=== PATIENT | male | born 1955 | race Two or more races ===

== ENCOUNTER 2022-11-11 11:30 | Emergency (ER) | payer OTHER ==
[~2022-11-11] VITALS: Ht 165.1 cm; Wt 54.9 kg
[2022-11-11 12:11] LABS: Basophils # (auto) 0.1 10 ^3/uL (0-0.2); Eosinophils # (auto) 0.6 10 ^3/uL (0-0.8)
[2022-11-11 12:13] LABS: Basophils % (auto) 0.4 % (0.0-2.0); Eosinophils % (auto) 4.7 % (0.0-7.0); Hematocrit 44.5 % (41.0-53.0); Hemoglobin 15.3 g/dL (13.5-17.5); Lymphocytes # (auto) 1.8 10 ^3/uL (0.4-5.4); Lymphocytes % (auto) 15.1 % (10.0-50.0); Mean Corpuscular Hemoglobin 30.7 pg (28.0-32.0); Mean Corpuscular Hgb Conc. 34.3 g/dL (32.0-36.0); Mean Corpuscular Volume 89.5 fL (80.0-100.0); Monocytes % (auto) 8.5 % (0.0-12.0); Neutrophils # (auto) 8.4 10 ^3/uL (1.6-8.6); Neutrophils % (auto) 71.3 % (37.0-80.0); Nucleated Red Blood Cells % 0.1 %; Red Blood Cells 4.98 10^6/uL (4.5-5.90); Red Cell Distribution Width 13.7 % (11.8-14.3); White Blood Cell 11.8 10^3/uL (4.4-10.8)
[2022-11-11 12:29] LABS: Alanine Aminotransferase 37 U/L (7-40); Albumin 3.7 g/dL (3.2-4.8); Alkaline Phosphatase 83 U/L (46-116); Anion Gap 8 (5-15); Aspartate Aminotransferase 26 U/L (13-40); BUN/Creatinine Ratio 9.9 (10.0-20.0); Blood Urea Nitrogen 12 mg/dL (9-23); Carbon Dioxide 30 mmol/L (20-30); Chloride 99 mmol/L (98-107); Glucose 115 mg/dL (74-106); Magnesium 2.3 mg/dL (1.6-2.6); Potassium 4.3 mmol/L (3.5-5.1); Sodium 137 mmol/L (136-145)
[2022-11-11 12:30] LABS: Bilirubin, Total 0.2 mg/dL (0.2-1.0); Total Protein 6.4 g/dL (5.7-8.2)
[2022-11-11] MEDS ORDERED: SODIUM CHLORIDE 0.9% 1,000 ML IV ONE ×2 (12:30)
[2022-11-11] MEDS ORDERED: PANTOPRAZOLE 40 MG/10 ML VIAL INJ IV ONE (12:30)
[2022-11-11 12:35] LABS: INR 1.01 (0.9-1.15); Partial Thromboplastin Time 21.4 SEC (24.5-34.5); Prothrombin Time 10.6 sec (9.3-11.8)
[2022-11-11] MEDS ORDERED: metroNIDAZOLE 500MG/100ML 100 ML IV ONE (12:45)
[2022-11-11] MEDS ORDERED: cefTRIAXone 1GM/50ML D5W 50 ML IV ONE (12:45)
[2022-11-11 13:52] LABS: Lactic Acid w/Reflex 2.1 mmol/L (0.4-2.0)
[2022-11-11] MEDS ORDERED: LEVO500T91 PO (14:00)
[2022-11-11] MEDS ORDERED: METR375C PO (14:00)
[2022-11-11 15:30] VITALS: TEMP 98.9
[2022-11-11 16:11] VITALS: PULSE 107; RESP 14; O2SAT 95
[2022-11-11 17:30] VITALS: BP 105/59; PULSE 107; RESP 18; O2SAT 95
== END 2022-11-11 18:18 | disposition home or self-care (01) ==
LOC: ER 11:30
DX: K52.9 Noninfective gastroenteritis and colitis, unspecified (principal); Z79.899 Other long term (current) drug therapy
CPT/HCPCS: 36415; 74176; 80053; 83605; 83735; 84484; 85025; 85610; 85730; 87040; 93005; 96365; 96367; 96375; 99285; C9113; J0696; J3490; J7030

== ENCOUNTER 2024-08-31 15:18 | Inpatient (IN) | payer OTHER ==
[~2024-08-31] VITALS: Ht 165.1 cm; Wt 53.0 kg
[2024-08-31 01:40] VITALS: BP 118/80; PULSE 116; RESP 19; TEMP 96.3; O2SAT 97
[~2024-08-31 15:18] MED LIST: LEVO500T91 PO; METR375C PO
--- NOTE | 2024-08-31 15:50 | ED.PDOC ---
GI ASSESSMENT HPI Comments 69 y.o male with PMHx of colitis, presents to the ED for a chief complaint of abdominal pain associated with diarrhea that started 2 weeks ago. Patient describes pain as an ache, is constant, non radiating, rating a 6/10 on the pain scale and is associated with mild bright red blood within the diarrhea episodes. Patient denies any nausea, vomiting, fever, chills, back pain, hematuria, or dysuria. Time Seen by MD: 15:45 Primary Care Provider: "I'M NOT SURE" Reviewed Notes: Nurses Notes, Medications, Allergies Allergies: Coded Allergies: NO KNOWN ALLERGIES (Unverified , 11/11/22) Home Meds Active Scripts Metronidazole (Flagyl) 375 Mg Cap, 500 MG PO BS for 10 Days, #30 CAP Prov:JESS EDGAR MD 11/11/22 Levofloxacin Hemihydrate (LEVOFLOXACIN) 500 Mg Tab, 500 MG PO DAILY for 10 Days, #10 MG Prov:JESS EDGAR MD 11/11/22 Information Source: Patient Mode of Arrival: Ambulatory Timing: Weeks (2) Duration: Since onset Quality: Aching Vomitus: None Stool: Blood Streaked, Loose Severity: Moderate Recent: None Recent Hx of: None Pain Location: Diffuse Modifying Factors: Nothing Associated sign and symptoms: Diarrhea, Abdominal Pain Past Medical History Past Medical History (Other): colitis Surgical History: Hernia Repair Family History Family History: Unknown Social History Smoker: Non-Smoker Alcohol: Occasionally Drugs: Denies Drug Use Lives In: Home Constitutional: denies: chills, diaphoresis, fatigue, fever, malaise, sweats, weakness, others EENTM: denies: blurred vision, double vision, ear bleeding, ear discharge, ear drainage, ear pain, ear ringing, eye pain, eye redness, hearing loss, mouth pain, mouth swelling, nasal discharge, nose bleeding, nose congestion, nose pain, photophobia, tearing, throat pain, throat swelling, voice changes, others Respiratory: denies: cough, hemoptysis, orthopnea, SOB at rest, shortness of breath, SOB with excertion, stridor, wheezing, others Cardiovascular: denies: chest pain, dizzy spells, diaphoresis, Dyspnea on exertion, edema, irregular heart beat, left arm pain, lightheadedness, palpitations, PND, syncope, others Gastrointestinal: reports: abdominal pain, diarrhea; denies: abdomen distended, blood streaked bowels, constipated, dysphagia, difficulty swallowing, hematemesis, melena, nausea, poor appetite, poor fluid intake, rectal bleeding, rectal pain, vomiting, others Genitourinary: denies: burning, dysuria, flank pain, frequency, hematuria, incontinence, penile discharge, penile sore, pain, testicle pain, testicle swelling, urgency, others Neurological: denies: dizziness, fainting, headache, left sided numbness, left sided weakness, numbness, paresthesia, pre-existing deficit, right sided numbness, right sided weakness, seizure, speech problems, tingling, tremors, weakness, others Musculoskeletal: denies: back pain, gout, joint pain, joint swelling, muscle pain, muscle stiffness, neck pain, others Integumetry: denies: bruises, change in color, change in hair/nails, dryness, laceration, lesions, lumps, rash, wounds, others Allergic/Immunocompromised: denies: Difficulty Healing, Frequent Infections, Hives, Itching, others Hematologic/Lymphatic: denies: anemia, blood clots, easy bleeding, easy bruising, swollen glands, others Endocrine: denies: excessive hunger, excessive sweating, excessive thirst, excessive urination, flushing, intolerance to cold, intolerance to heat, unexplained weight gain, unexplained weight loss, others Psychiatric: denies: anxiety, bipolar disorder, depression, hopeless, panic disorder, schizophrenia, sleepless, suicidal, others All Other Systems: Reviewed and Negative Physical Exam General Appearance: Moderate Distress, Thin HEENT: Normal ENT Inspection, Pharynx Normal, TMs Normal Neck: Full Range of Motion, Non-Tender, Normal, Normal Inspection Respiratory: Chest Non-Tender, Lungs Clear, No Accessory Muscle Use, No Respiratory Distress, Normal Breath Sounds Cardiovascular: No Edema, No JVD, No Murmur, No Gallop, Normal Peripheral Pulses, Regular Rate/Rhythm Breast Exam: Deferred Gastrointestinal: Diffuse, No Organomegaly, No Pulsatile Mass, Normal Bowel Sounds, Soft, Tenderness Genitalia: Deferred Pelvic: Deferred Rectal: Deferred Extremities: No calf tenderness, Normal capillary refill, Normal range of motion, No pedal edema Musculoskeletal : Apperance: Normal Neurologic: Alert, outside solar sales consultant II-XII nml as Tested, Motor Weakness, Normal Affect, Normal Mood, No Sensory Deficits Cerebellar Function: Normal Reflexes: Normal Skin: Dry, Normal Color, Warm Lymphatic: No Adenopathy Was a procedure done? Was a procedure done?: No GI differential Dx Differential Diagnosis: Gastroenteritis, Inflammatory BD, Pancreatitis, Electrolyte Imbalance, Bacterial, Parasitic, Viral, Anemia, Esophageal Varicies, Stress Ulcer X-Ray, Labs, Meds, VS Vital Signs Date Time Temp Pulse Resp B/P (MAP) Pulse Ox O2 Delivery O2 Flow Rate FiO2 08/31/24 16:00 Room Air* 0 21 08/31/24 16:00 98.9 139 18 117/76 (90) 99 98.9 08/31/24 15:35 98.9 139 18 117/76 (90) 99 98.9 Lab Test 08/31/24 16:05 Range/Units White Blood Count 14.2 H 4.4-10.8 10^3/uL Red Blood Count 4.50 4.5-5.90 10^6/uL Hemoglobin 12.4 L 13.5-17.5 g/dL Hematocrit 37.6 L 41.0-53.0 % Mean Corpuscular Volume 83.5 80.0-100.0 fL Mean Corpuscular Hemoglobin 27.5 L 28.0-32.0 pg Mean Corpuscular Hemoglobin Concent 32.9 32.0-36.0 g/dL Red Cell Distribution Width 16.5 H 11.8-14.3 % Platelet Count 728 H 140-450 10^3/uL Mean Platelet Volume 7.0 6.9-10.8 fL Neutrophils (%) (Auto) 79.4 37.0-80.0 % Lymphocytes (%) (Auto) 12.1 10.0-50.0 % Monocytes (%) (Auto) 7.1 0.0-12.0 % Eosinophils (%) (Auto) 0.9 0.0-7.0 % Basophils (%) (Auto) 0.5 0.0-2.0 % Neutrophils # (Auto) 11.3 H 1.6-8.6 10 ^3/uL Lymphocytes # (Auto) 1.7 0.4-5.4 10 ^3/uL Monocytes # (Auto) 1.0 0-1.3 10 ^3/uL Eosinophils # (Auto) 0.1 0-0.8 10 ^3/uL Basophils # (Auto) 0.1 0-0.2 10 ^3/uL Nucleated Red Blood Cells 0.2 % Sodium Level 133 L 136-145 mmol/L Potassium Level 4.5 3.5-5.1 mmol/L Chloride Level 97 L 98-107 mmol/L Carbon Dioxide Level 24 20-31 mmol/L Anion Gap 12 5-15 Blood Urea Nitrogen 17 9-23 mg/dL Creatinine 1.59 H 0.700-1.30 mg/dL Glomerular Filtration Rate Calc 47 >90 mL/min BUN/Creatinine Ratio 10.7 10.0-20.0 Serum Glucose 114 H 74-106 mg/dL Calcium Level 10.1 8.7-10.4 mg/dL Total Bilirubin 0.3 0.2-1.0 mg/dL Aspartate Amino Transferase (AST) 17 13-40 U/L Alanine Aminotransferase (ALT) 12 7-40 U/L Alkaline Phosphatase 94 46-116 U/L Total Protein 7.4 5.7-8.2 g/dL Albumin 4.1 3.2-4.8 g/dL Current Medications Medications (Trade) Dose Ordered Sig/Janie Route Start Time Stop Time Status Last Admin Sodium Chloride 1,000 ml @ 1,000 mls/hr Q1H ONCE IVB 08/31/24 16:00 08/31/24 16:59 DC 08/31/24 16:15 Pantoprazole Sodium (Protonix) 40 mg ONCE ONCE IV 08/31/24 16:00 08/31/24 16:01 DC 08/31/24 16:24 IV Hep-Lock was established. The patient's CBC shows an elevated white blood cell count of 14.2 The rest of the CBC is within normal limits The chemistry panel shows a creatinine of 1.59 otherwise within normal limits The patient was given Protonix 40 mg IV push The patient was given a 1 L bolus of normal saline At this time, the patient is being admitted The CAT scan of the abdomen and pelvis shows: Impression: 1. No acute abdominopelvic abnormalities. 2. Pancolonic wall thickening. Correlate for colitis. At this time, the patient is being admitted The patient's diagnosis is colitis and dehydration Images Reviewed?: Images reviewed and evaluated by me Time of 1ST Reevaluation: 15:50 Reevaluation 1ST: Unchanged Patient Education/Counseling: Diagnosis, Treatment, Prognosis Family Education/Counseling: No Family Present SEPSIS Sepsis Screen Physician Orders Head Without Contrast (08/31/24 15:33) Urinalysis (08/31/24 15:47) Ct Ab Pel Wo Con-No Oral Or Iv (08/31/24 15:47) Heplock Iv (08/31/24 15:47) Clostridium Difficile Toxin (08/31/24 15:47) Vital Signs Date Time Temp Pulse Resp B/P (MAP) Pulse Ox O2 Delivery O2 Flow Rate FiO2 08/31/24 16:00 Room Air* 0 21 08/31/24 16:00 98.9 139 18 117/76 (90) 99 98.9 08/31/24 15:35 98.9 139 18 117/76 (90) 99 98.9 Laboratory Tests Test 08/31/24 16:05 White Blood Count 14.2 10^3/uL (4.4-10.8) H Medications Medications Dose Ordered Sig/Janie Route Start Time Stop Time Status Last Admin Dose Admin Pantoprazole Sodium 40 mg ONCE ONCE IV 08/31/24 16:00 08/31/24 16:01 DC 08/31/24 16:24 Sodium Chloride 1,000 ml @ 1,000 mls/hr Q1H ONCE IVB 08/31/24 16:00 08/31/24 16:59 DC 08/31/24 16:15 Departure 1 Departure Time of Disposition: 18:16 Impression: Primary Impression: Intractable abdominal pain Additional Impression: Colitis Disposition: ADMITTED INPATIENT Admit to: Med Surg Condition: Fair Critical Care Note Critical Care Time?: No Stability Stability form required: Yes Unstable for transfer: ED Physician Assesment (Clinical assesment) I personally scribed for CASTRO HERBERT MD ([email or web address]) on 08/31/24 at 15:50. Electronically submitted by Audelia Degroot ([facility]). CASTRO HERBERT MD Aug 31, 2024 15:50
[2024-08-31] MEDS: SODIUM CHLORIDE 0.9% 1,000 ML IVB ONE (16:15)
[2024-08-31 16:19] LABS: Hematocrit 37.6 % (41.0-53.0); Hemoglobin 12.4 g/dL (13.5-17.5); Mean Corpuscular Hemoglobin 27.5 pg (28.0-32.0); Mean Corpuscular Volume 83.5 fL (80.0-100.0); Nucleated Red Blood Cells % 0.2 %
[2024-08-31] MEDS: PANTOPRAZOLE 40 MG/10 ML VIAL INJ IV ONE (16:24)
[2024-08-31 16:35] LABS: Alanine Aminotransferase 12 U/L (7-40); Albumin 4.1 g/dL (3.2-4.8); Alkaline Phosphatase 94 U/L (46-116); Anion Gap 12 (5-15); BUN/Creatinine Ratio 10.7 (10.0-20.0); Bilirubin, Total 0.3 mg/dL (0.2-1.0); Blood Urea Nitrogen 17 mg/dL (9-23); Calcium 10.1 mg/dL (8.7-10.4); Carbon Dioxide 24 mmol/L (20-31); Chloride 97 mmol/L (98-107); Glucose 114 mg/dL (74-106); Potassium 4.5 mmol/L (3.5-5.1); Sodium 133 mmol/L (136-145); Total Protein 7.4 g/dL (5.7-8.2)
--- NOTE | 2024-08-31 17:08 | DVH ---
Exam: CT CT AB PEL WO CON-NO ORAL OR IV History: pain Comparison Study: CT CT AB PEL WO CON-NO ORAL OR IV on DOS: 11/11/22 TECHNIQUE: Multidetector CT of the abdomen and pelvis was performed from lung bases to pubic symphysi s. Imaging was performed without IV contrast. Axial, coronal, and sagittal multiplanar reformats were obtained from the axial data set by the technologist. RADIATION DOSE: DLP 247.36 mGy.cm; CTDI vol 5.13 mGy. Findings: Lungs: The lung bases are clear. Heart: No cardiomegaly or pericardial effusion. Liver: Unremarkable. Gallbladder: Unremarkable. Spleen: Unremarkable Pancreas: Unremarkable Adrenals: Unremarkable Kidneys: Unremarkable GI tract: Pancolonic wall thickening. : Unremarkable. Vasculature: Mild aortoiliac atherosclerosis. Lymphadenopathy: Absent Peritoneum: No ascites Musculoskeletal: Mild multilevel degenerative changes of the thoracolumbar spine. Soft tissues: Unremarkable Impression: 1. No acute abdominopelvic abnormalities. 2. Pancolonic wall thickening. Correlate for colitis.
[2024-08-31 18:47] LABS: Urine Protein, UAD TRACE (Negative)
[2024-08-31] MEDS ORDERED: NITROGLYCERIN 0.4 MG SL TAB SL PRN (22:00)
[2024-08-31] MEDS ORDERED: MORPHINE SULFATE INJ 2 MG/ml SYRG IV PRN (22:00)
[2024-08-31] MEDS: CIPROFLOXACIN 400MG/200ML 200 ML IV SCH (22:00)
[2024-08-31] MEDS ORDERED: PANTOPRAZOLE 40 MG/10 ML VIAL INJ IV SCH (22:00)
[2024-08-31] MEDS: SODIUM CHLORIDE 0.9% 1,000 ML IV ONE (22:36)
[2024-08-31 22:37] LABS: INR 1.03 (0.9-1.15); Prothrombin Time 10.9 sec (9.3-11.8)
[2024-09-01] VITALS (8 sets, daily range): BP systolic 96–118; BP diastolic 49–80; PULSE 107–116; RESP 16–20; TEMP 96.3–98.4; O2SAT 94–100
[2024-09-01] MEDS: PANTOPRAZOLE 40 MG/10 ML VIAL INJ IV SCH (08:48)
[2024-09-01] MEDS: CIPROFLOXACIN 400MG/200ML 200 ML IV SCH (08:48)
[2024-09-01] MEDS: SODIUM CHLORIDE 0.9% 1,000 ML IV ONE ×2 (08:49→15:15)
--- NOTE | 2024-09-01 13:36 | DVHHP2 ---
Admitting Diagnosis: SIRS Colitis GI bleed History of Present Illness HPI 69 y.o. male was brought to the ER c/o upper abdominal pain associated with diarrhea for the past 2 weeks. Patient was not taking any antibiotics before or after it happened. Patient informed that hte pain doesn't radiate to the back. He noticed bright red blood in stool during that time. Patient reported h/o previous episodes of colitis. Home Meds Active Scripts Metronidazole (Flagyl) 375 Mg Cap, 500 MG PO BS for 10 Days, #30 CAP Prov:JESS EDGAR MD 11/11/22 Levofloxacin Hemihydrate (LEVOFLOXACIN) 500 Mg Tab, 500 MG PO DAILY for 10 Days, #10 MG Prov:JESS EDGAR MD 11/11/22 Past Medical History Patient Family History: FH: breast cancer G8 MOTHER G8 SISTER FH: heart attack G8 FATHER Review of Systems Gastrointestinal: Nausea, Abdominal Pain, Diarrhea, Hematochezia H&P Exam Vital Signs Vital Signs Date Time Temp Pulse Resp B/P (MAP) Pulse Ox O2 Delivery O2 Flow Rate FiO2 09/01/24 09:00 97.7 107 16 116/67 (83) 100 97.7 09/01/24 08:00 Room Air* 0 21 General Appeara: Mild distress Head Exam: Normal inspection Neck Exam: Normal inspection Eye Exam: bilateral eye PERRL, bilateral eye EOMI Pulmonary/Respiratory: Lungs clear Cardiovascular/Chest: Tachycardia Abdominal Pain Onset Location: Epigastric, Periumbilical Neuro/Mental St: Alert, Oriented Labs/Xrays Labs Test 08/31/24 22:14 08/31/24 16:05 08/31/24 15:54 Range/Units Prothrombin Time 10.9 9.3-11.8 sec Prothrombin Time INR 1.03 0.9-1.15 White Blood Count 14.2 H 4.4-10.8 10^3/uL Red Blood Count 4.50 4.5-5.90 10^6/uL Hemoglobin 12.4 L 13.5-17.5 g/dL Hematocrit 37.6 L 41.0-53.0 % Mean Corpuscular Volume 83.5 80.0-100.0 fL Mean Corpuscular Hemoglobin 27.5 L 28.0-32.0 pg Mean Corpuscular Hemoglobin Concent 32.9 32.0-36.0 g/dL Red Cell Distribution Width 16.5 H 11.8-14.3 % Platelet Count 728 H 140-450 10^3/uL Mean Platelet Volume 7.0 6.9-10.8 fL Neutrophils (%) (Auto) 79.4 37.0-80.0 % Lymphocytes (%) (Auto) 12.1 10.0-50.0 % Monocytes (%) (Auto) 7.1 0.0-12.0 % Eosinophils (%) (Auto) 0.9 0.0-7.0 % Basophils (%) (Auto) 0.5 0.0-2.0 % Neutrophils # (Auto) 11.3 H 1.6-8.6 10 ^3/uL Lymphocytes # (Auto) 1.7 0.4-5.4 10 ^3/uL Monocytes # (Auto) 1.0 0-1.3 10 ^3/uL Eosinophils # (Auto) 0.1 0-0.8 10 ^3/uL Basophils # (Auto) 0.1 0-0.2 10 ^3/uL Nucleated Red Blood Cells 0.2 % Sodium Level 133 L 136-145 mmol/L Potassium Level 4.5 3.5-5.1 mmol/L Chloride Level 97 L 98-107 mmol/L Carbon Dioxide Level 24 20-31 mmol/L Anion Gap 12 5-15 Blood Urea Nitrogen 17 9-23 mg/dL Creatinine 1.59 H 0.700-1.30 mg/dL Glomerular Filtration Rate Calc 47 >90 mL/min BUN/Creatinine Ratio 10.7 10.0-20.0 Serum Glucose 114 H 74-106 mg/dL Calcium Level 10.1 8.7-10.4 mg/dL Total Bilirubin 0.3 0.2-1.0 mg/dL Aspartate Amino Transferase (AST) 17 13-40 U/L Alanine Aminotransferase (ALT) 12 7-40 U/L Alkaline Phosphatase 94 46-116 U/L Total Protein 7.4 5.7-8.2 g/dL Albumin 4.1 3.2-4.8 g/dL Urine Color Yellow Yellow Urine Clarity Turbid H Clear Urine pH 5.5 5.0-9.0 Urine Specific [place] 1.023 1.001-1.035 Urine Protein Trace H Negative Urine Ketones 1+ H Negative Urine Blood 1+ H Negative /uL Urine Nitrite Negative Negative Urine Bilirubin Negative Negative Urine Urobilinogen Normal Negative mg/dL Urine Leukocyte Esterase Negative Negative /uL Urine RBC 1 0 - 3 /hpf Urine Microscopic WBC 2 0-3 /HPF Urine Squamous Epithelial Cells None seen <5 /hpf Urine Bacteria None seen None Seen /hpf Urine Hyaline Casts Mod 0 - 2 /lpf Urine Mucus Few None Seen Urine Glucose Normal Normal mg/dL Microbiology Date/Time Source Procedure Growth Status 09/01/24 06:05 Stool Clostridium difficile Toxin Assay - Final Complete Assessment/Plan Problem List: (1) Colitis (2) Abdominal pain (3) GI bleed Plan NPO, IVF, Protonix, IV Abx, GI consult Plan discussed with: Patient BETH BRAY MD Sep 01, 2024 13:36
[2024-09-01 15:00] LABS: Hemoglobin 10.7 g/dL (13.5-17.5); Mean Corpuscular Volume 84.7 fL (80.0-100.0); Nucleated Red Blood Cells % 0.1 %
[2024-09-01 15:02] LABS: Chloride 103 mmol/L (98-107); Potassium 4.1 mmol/L (3.5-5.1); Sodium 136 mmol/L (136-145)
[2024-09-01 15:03] LABS: Anion Gap 10 (5-15); Carbon Dioxide 23 mmol/L (20-31); Hematocrit 33.2 % (41.0-53.0); Mean Corpuscular Hemoglobin 27.3 pg (28.0-32.0)
[2024-09-01 15:07] LABS: Calcium 8.0 mg/dL (8.7-10.4)
[2024-09-01 15:08] LABS: BUN/Creatinine Ratio 8.6 (10.0-20.0); Blood Urea Nitrogen 10 mg/dL (9-23); Glucose 71 mg/dL (74-106)
[2024-09-01] MEDS ORDERED: METR-344 PO (15:14)
[2024-09-01] MEDS ORDERED: LEVO500T91 PO (15:14)
[2024-09-01] MEDS: SODIUM CHLORIDE 0.9% 1,000 ML IV SCH (15:15)
[2024-09-02 01:00] VITALS: BP 100/55; PULSE 114; RESP 20; TEMP 98.8; O2SAT 93
[2024-09-02 05:00] VITALS: BP 100/59; PULSE 110; RESP 20; TEMP 98.2; O2SAT 92
[2024-09-02 06:10] LABS: Hemoglobin 10.0 g/dL (13.5-17.5); Mean Corpuscular Volume 85.0 fL (80.0-100.0)
[2024-09-02 06:12] LABS: Hematocrit 30.9 % (41.0-53.0); Mean Corpuscular Hemoglobin 27.4 pg (28.0-32.0); Nucleated Red Blood Cells % 0.1 %
[2024-09-02 06:31] LABS: Anion Gap 10 (5-15); Carbon Dioxide 23 mmol/L (20-31); Chloride 105 mmol/L (98-107); Potassium 3.8 mmol/L (3.5-5.1); Sodium 138 mmol/L (136-145)
[2024-09-02 06:33] LABS: Calcium 7.6 mg/dL (8.7-10.4)
[2024-09-02 06:37] LABS: BUN/Creatinine Ratio 5.8 (10.0-20.0); Glucose 77 mg/dL (74-106)
[2024-09-02 06:38] LABS: Blood Urea Nitrogen 7 mg/dL (9-23)
--- NOTE | 2024-09-02 07:37 | DVHDS2 ---
New Physician D'charge PN Admitting Diagnosis Admitting Diagnosis colitis Discharge Diagnosis colitis Operations or Procedures none Reason(s) For Hospitalization Surgery Hospital Course 69 M who comes to ER c/o abd pain and diarrhea. His initial WBC was 14k and CT abdomen showed pancolonic thickening suggestive of colitis. He was admitted and started on IV ABx. His C diff was negative and his WBC trended down today to 7k. His chemistry is nml. He was hydrated along with cipro/flagyl IV and his diarrhea is also improving. Patient has had colitis a few times before according to him, His diet was advanced and otherwise his condition is improved. He will be discharged home with PO levaquin and flagyl x 14 days and will have outpt GI follow up. Scripts sent to patients pharmacy on file and [facility] to arrange for all outpt follow up. Treatment Plan Discharge Condition of Discharge Good Disposition Home Discharge Instructions Diet: Cardiac 2g Na,low cholest Activity: No Restrictions, As Tolerated Medications: see med sheet Follow Up Care Follow Up/Referral: pcp GI Discharge Statement: "Patient was advised to return to the ER or call 911 if any headaches, dizziness, shortness of breath, chest pain, abdominal pain, bleeding, fevers, or worsening of medical condition. Patient was counseled about treatment plan, medications, possible side effects, patientverbalized understanding. All questions were answered to the best of my ability. This discharge took greater then 30 minutes in planning, reviewing documentation, counseling the patient, and discussing with other team members." TIFF CORDERO MD Sep 02, 2024 07:37
[2024-09-02 08:00] VITALS: PULSE 87; RESP 16; O2SAT 99
[2024-09-02 09:00] VITALS: BP 116/68; PULSE 100; RESP 23; TEMP 97.8; O2SAT 93
--- NOTE | 2024-09-02 09:42 | DVHINCON2 ---
GI Consult Consult Note Date of Consultation: 09/02/24 Chief Complaint: diarrhea Referring Physician: Dr. Keenan H&P: 69-year-old male with history of left-sided ulcerative colitis. He has been maintained on steroids in the past with intended plan for Humira as an outpatient in 2022 but was lost to follow up presents for complaints of acute onset of diarrhea with intermittent blood in the stool. Patient states his symptoms began acutely a few days prior to admission. States he has had multiple episodes of this in the last 20 years mostly triggered by stress. He states that when he gets stressed financially, emotionally etc. he experiences bad abdominal cramping with diarrhea and intermittent blood in the stool. Denies having any food triggers. Patient was seen by Dr. Silvia Ortiz in 2022 for similar presentation. Patient und erwent colonoscopy at that time which showed left-sided colitis consistent with ulcerative colitis. Was placed on a steroid course with intended bridge to Humira the patient was lost to follow up. Past Medical History: Denies any chronic medical problems aside from ulcerative colitis Past Surgical History: Inguinal hernia repair Social History: No pertinent history Family History: No pertinent history Review of Systems: Constitutional: no fever, chill, weight loss HEENT: no eye pain, no hearing loss, no oral lesion, no scleral icterus Heart: no chest pain, no chest pressure Lung: no cough, no dyspnea with exertion Abdomen: see HPI : no pain with urination, normal appearing urine Musculoskeletal: no joint pain, no muscle pain Neurological: no seizure, no loss of sensation, no weakness in extremities Pysch: no depression, no anxiety Derm: no rash, no jaundice Physical exam: General: NAD, AAOX3 HEENT: no scleral icterus, normal hearing, gums without lesions or bleeding, oropharynx clear without erythema or exudate. Neck: Supple without enlargement of the thyroid, or lymphadenopathy. Chest: Normal size and shape, no tenderness, nonlabored breathing. Heart: Normal rate, normal pulses Abdomen: non-distended, no tenderness to palpation, +BS, no hepatosplenomegaly Extremities: no edema, no cyanosis Skin: No rashes, No jaundice Labs: Laboratory Tests Test 08/31/24 15:54 08/31/24 16:05 08/31/24 22:14 09/01/24 14:38 Range/Units Urine Color Yellow Yellow Urine Clarity Turbid H Clear Urine pH 5.5 5.0-9.0 Urine Specific [place] 1.023 1.001-1.035 Urine Protein Trace H Negative Urine Ketones 1+ H Negative Urine Blood 1+ H Negative /uL Urine Nitrite Negative Negative Urine Bilirubin Negative Negative Urine Urobilinogen Normal Negative mg/dL Urine Leukocyte Esterase Negative Negative /uL Urine RBC 1 0 - 3 /hpf Urine Microscopic WBC 2 0-3 /HPF Urine Squamous Epithelial Cells None seen <5 /hpf Urine Bacteria None seen None Seen /hpf Urine Hyaline Casts Mod 0 - 2 /lpf Urine Mucus Few None Seen Urine Glucose Normal Normal mg/dL White Blood Count 14.2 H 7.5 # 4.4-10.8 10^3/uL Red Blood Count 4.50 3.92 L 4.5-5.90 10^6/uL Hemoglobin 12.4 L 10.7 L 13.5-17.5 g/dL Hematocrit 37.6 L 33.2 #L 41.0-53.0 % Mean Corpuscular Volume 83.5 84.7 80.0-100.0 fL Mean Corpuscular Hemoglobin 27.5 L 27.3 L 28.0-32.0 pg Mean Corpuscular Hemoglobin Concent 32.9 32.3 32.0-36.0 g/dL Red Cell Distribution Width 16.5 H 17.0 H 11.8-14.3 % Platelet Count 728 H 590 H 140-450 10^3/uL Mean Platelet Volume 7.0 6.7 L 6.9-10.8 fL Neutrophils (%) (Auto) 79.4 74.2 37.0-80.0 % Lymphocytes (%) (Auto) 12.1 14.4 10.0-50.0 % Monocytes (%) (Auto) 7.1 8.1 0.0-12.0 % Eosinophils (%) (Auto) 0.9 2.9 0.0-7.0 % Basophils (%) (Auto) 0.5 0.4 0.0-2.0 % Neutrophils # (Auto) 11.3 H 5.5 1.6-8.6 10 ^3/uL Lymphocytes # (Auto) 1.7 1.1 0.4-5.4 10 ^3/uL Monocytes # (Auto) 1.0 0.6 0-1.3 10 ^3/uL Eosinophils # (Auto) 0.1 0.2 0-0.8 10 ^3/uL Basophils # (Auto) 0.1 0 0-0.2 10 ^3/uL Nucleated Red Blood Cells 0.2 0.1 % Sodium Level 133 L 136 136-145 mmol/L Potassium Level 4.5 4.1 3.5-5.1 mmol/L Chloride Level 97 L 103 98-107 mmol/L Carbon Dioxide Level 24 23 20-31 mmol/L Anion Gap 12 10 5-15 Blood Urea Nitrogen 17 10 9-23 mg/dL Creatinine 1.59 H 1.16 0.700-1.30 mg/dL Glomerular Filtration Rate Calc 47 68 >90 mL/min BUN/Creatinine Ratio 10.7 8.6 L 10.0-20.0 Serum Glucose 114 H 71 L 74-106 mg/dL Calcium Level 10.1 8.0 L 8.7-10.4 mg/dL Total Bilirubin 0.3 0.2-1.0 mg/dL Aspartate Amino Transferase (AST) 17 13-40 U/L Alanine Aminotransferase (ALT) 12 7-40 U/L Alkaline Phosphatase 94 46-116 U/L Total Protein 7.4 5.7-8.2 g/dL Albumin 4.1 3.2-4.8 g/dL Prothrombin Time 10.9 9.3-11.8 sec Prothrombin Time INR 1.03 0.9-1.15 Test 09/02/24 04:31 Range/Units White Blood Count 7.5 4.4-10.8 10^3/uL Red Blood Count 3.63 L 4.5-5.90 10^6/uL Hemoglobin 10.0 L 13.5-17.5 g/dL Hematocrit 30.9 L 41.0-53.0 % Mean Corpuscular Volume 85.0 80.0-100.0 fL Mean Corpuscular Hemoglobin 27.4 L 28.0-32.0 pg Mean Corpuscular Hemoglobin Concent 32.3 32.0-36.0 g/dL Red Cell Distribution Width 16.4 H 11.8-14.3 % Platelet Count 567 H 140-450 10^3/uL Mean Platelet Volume 6.9 6.9-10.8 fL Neutrophils (%) (Auto) 72.1 37.0-80.0 % Lymphocytes (%) (Auto) 12.2 10.0-50.0 % Monocytes (%) (Auto) 12.4 H 0.0-12.0 % Eosinophils (%) (Auto) 2.5 0.0-7.0 % Basophils (%) (Auto) 0.8 0.0-2.0 % Neutrophils # (Auto) 5.4 1.6-8.6 10 ^3/uL Lymphocytes # (Auto) 0.9 0.4-5.4 10 ^3/uL Monocytes # (Auto) 0.9 0-1.3 10 ^3/uL Eosinophils # (Auto) 0.2 0-0.8 10 ^3/uL Basophils # (Auto) 0.1 0-0.2 10 ^3/uL Nucleated Red Blood Cells 0.1 % Sodium Level 138 136-145 mmol/L Potassium Level 3.8 3.5-5.1 mmol/L Chloride Level 105 98-107 mmol/L Carbon Dioxide Level 23 20-31 mmol/L Anion Gap 10 5-15 Blood Urea Nitrogen 7 L 9-23 mg/dL Creatinine 1.20 0.700-1.30 mg/dL Glomerular Filtration Rate Calc 65 >90 mL/min BUN/Creatinine Ratio 5.8 L 10.0-20.0 Serum Glucose 77 74-106 mg/dL Calcium Level 7.6 L 8.7-10.4 mg/dL Vital Signs Date Time Temp Pulse Resp B/P (MAP) Pulse Ox O2 Delivery O2 Flow Rate FiO2 09/02/24 09:00 97.8 100 23 116/68 (84) 93 97.8 09/01/24 20:10 Room Air* 0 21 Imaging: CT with pancolitis Assessment: 69-year-old male with history of left-sided ulcerative colitis. He has been maintained on steroids in the past with intended plan for Humira as an outpatient in 2022 but was lost to follow up presents for complaints of acute onset of diarrhea with intermittent blood in the stool. C diff negative. Patient's likely presenting with the acute ulcerative colitis flare. Reports improvement in symptoms including abdominal pain and frequency of diarrhea. States bleeding per rectum has been stopped. Still reports loose stools however Plan: - per patient and nurses plan is for discharge home today. - recommend prednisone 40 mg p.o. q.day for two weeks followed by 5 mg taper per week until seen an outpatient GI clinic - we will plan for biologic therapy as an outpatient - Stressed importance of outpatient follow up. Patient understands. Date of Service: Sep 02, 2024 Billing Provider: MARLI DIAZ MD Common Visit Codes: 92515-[id number] INP/OBS CARE (MOD) MARLI DIAZ MD Sep 02, 2024 09:42
[2024-09-02] MEDS ORDERED: PRED20TA2 PO (09:43)
[2024-09-02] MEDS: methylPREDNISolone SOD SUCC 125 MG/2 ML VL IV ONE (10:36)
== END 2024-09-02 13:15 | disposition home or self-care (01) | DRG 391 ==
LOC: ER 15:24 → OVERFLOW 21:49 → CENTRAL 21:59 → OVERFLOW 21:59 → ER 21:59 → CENTRAL 23:41
PROVIDERS: ADMIT Internal Medicine; ATTEND Internal Medicine
DX: A09 Infectious gastroenteritis and colitis, unspecified (principal); N17.0 Acute kidney failure with tubular necrosis; Z79.52 Long term (current) use of systemic steroids; Z80.3 Family history of malignant neoplasm of breast; Z82.49 Family history of ischemic heart disease and other diseases of the circulatory system; Z79.899 Other long term (current) drug therapy
CPT/HCPCS: 36415; 74176; 80048; 80053; 81001; 85025; 85610; 87040; 87493; 96361; 96374; G0378; J2470; J3490